=== PATIENT | male | born 1975 | race African-American/Black ===

== ENCOUNTER 2025-01-18 11:23 | Emergency (ER) | payer OTHER ==
[~2025-01-18] VITALS: Ht 170.2 cm; Wt 95.3 kg
[2025-01-18] MEDS ORDERED: LEVALBUTEROL HCL 0.63 MG/3 ML SOLUTION IH SCH (12:45)
[2025-01-18] MEDS ORDERED: IPRATROPIUM BROMIDE 0.5 MG/2.5 ML AMPUL.NEB IH SCH (12:45)
[2025-01-18] MEDS ORDERED: METHYLPREDNISOLONE SOD SUCC 125 MG VIAL IV ONE (12:45)
[2025-01-18] MEDS ORDERED: METHYLPREDNISOLONE SOD SUCC 125 MG VIAL ONE (12:51)
[2025-01-18] MEDS ORDERED: IPRATROPIUM BROMIDE 0.5 MG/2.5 ML AMPUL.NEB IH ONE (12:54)
[2025-01-18] MEDS ORDERED: LEVALBUTEROL HCL 1.25 MG/3 ML SOLUTION IH ONE (12:54)
[2025-01-18 13:19] LABS: ABG PH 7.411 (7.35-7.45); ABG PO2 77.1 mmHg (80-100); ABG pCO2 39.5 mmHg (35-45); BASE EXCESS 0.1 mmol/l; BICARBONATE 24.5 mmol/l (23-25); SaO2 95.4 %; Tco2 25.8 mmol/l
[2025-01-18 13:23] LABS: BASO % 0.4 % (0.1-1.2); EOS # 0.05 (0.04-0.54); EOS % 0.7 % (0.7-7.0); HEMATOCRIT 38.6 % (40.1-51.0); HEMOGLOBIN 12.5 g/dL (13.7-17.5); LYMPH # 0.58 (1.18-3.74); LYMPH % 8.3 % (19.3-53.1); MEAN CORPUSCULAR HEMOGLOBIN 25.3 pg (25.6-32.2); MONO % 7.2 % (4.7-12.5); NEUT # 5.79 (1.56-6.13); NEUT % 83.3 % (34.0-71.1); PLATELET COUNT 313 K/uL (163-369); RED BLOOD COUNT 4.94 M/uL (4.63-6.08); RED CELL DISTRIBUTION WIDTH 13.2 % (11.6-14.4)
[2025-01-18 13:31] LABS: allen test SATISFACTORY; mode ROOM AIR; o2 21 %; puncture site RADIAL RIGHT
[2025-01-18 13:55] LABS: INFLUENZA A AG NEGATIVE (NEGATIVE); INFLUENZA B AG NEGATIVE (NEGATIVE)
== END 2025-01-18 15:29 | disposition home or self-care (01) ==
LOC: ER 11:37
PROVIDERS: Emergency Medicine
DX: J45.909 Unspecified asthma, uncomplicated (principal)
CPT/HCPCS: 36415; 71046; 82803; 94640; 96365; 99284; J3490